=== PATIENT | female | born 1970 | race Caucasian/White ===

== ENCOUNTER 2019-06-26 11:18 | Outpatient (CLI) | payer BC, SELFPAY ==
--- NOTE | ~2019-06-26 | US_ITS ---
EXAMINATION: US venous doppler LE RT EXAM DATE: 06/26/2019 12:08 INDICATION: Right leg swelling. TECHNIQUE: Multiple grayscale, color flow and Doppler images of the right lower extremity deep venous system were obtained and reviewed. There is no prior study for comparison. FINDINGS: The right common femoral, femoral and profunda veins demonstrate normal color flow, respira tory variation, augmentation and compressibility. Compressibility, color flow confirmed within the r ight popliteal, posterior tibial, peroneal, and greater saphenous veins. Small Chaudhary's cyst measurin g 1.9 x 0.8 x 2.2 cm. IMPRESSION: 1. No right lower extremity deep venous thrombosis. 2. Small Chaudhary's cyst. Reviewed, dictated and finalized at location B.
== END 2019-06-26 11:19 | disposition home or self-care (01) ==
PROVIDERS: PCP Family Medicine; Visit Provider Family Medicine
DX: M79.89 Other specified soft tissue disorders (principal); M71.22 Synovial cyst of popliteal space [Baker], left knee
CPT/HCPCS: 93971

== ENCOUNTER 2019-08-15 11:00 | Outpatient (CLI) | payer BC, SELFPAY ==
[2019-08-15 11:53] LABS: Alanine Aminotransferase 13 U/L (4-35); Albumin Level 4.3 g/dL (3.5-5.1); Alkaline Phosphatase 96 U/L (38-126); Aspartate Amino Transferase 20 U/L (14-36); Bilirubin,Total 0.5 mg/dL (0.2-1.3); Blood Urea Nitrogen 16 mg/dL (7-17); Carbon Dioxide 26 mmol/L (22-30); Chloride 107 mmol/L (98-107); Cholesterol 137 mg/dL (0-200); Estimated Glomerular Filt Rate 59; Glucose 103 mg/dL (65-105); HDL Direct 32 mg/dL; Potassium 4.3 mmol/L (3.4-5.0); Sodium 139 mmol/L (137-145); Triglycerides 111 mg/dL (<150)
[2019-08-15 12:04] LABS: LDL Cholesterol Direct 80 mg/dL
== END 2019-08-15 11:01 | disposition home or self-care (01) ==
PROVIDERS: PCP Family Medicine; Visit Provider Family Medicine
DX: E78.2 Mixed hyperlipidemia (principal); I10 Essential (primary) hypertension
CPT/HCPCS: 36415; 80053; 80061

== ENCOUNTER 2020-03-20 15:04 | Outpatient (CLI) | payer BC, SELFPAY ==
[2020-03-20 16:16] LABS: Basophils Absolute Auto 0.1 K/mm3 (0.0-0.1); Basophils Percent Auto 0.5 % (0.2-1.2); Eosinophils Absolute Auto 0.2 K/mm3 (0-0.3); Eosinophils Percent Auto 0.9 % (0-4.4); Hematocrit 37.8 % (37.0-47.0); Hemoglobin 11.8 g/dL (12.0-15.0); Immature Granulocyte Absolute 0.09 K/mm3 (0.00-0.031); Immature Granulocyte Percent A 0.5 % (0-0.5); Lymphocytes Absolute Auto 3.45 K/mm3 (0.9-3.2); Lymphocytes Percent Auto 19.9 % (18.3-44.2); Mean Corpuscular HGB Conc 31.2 g/dl (32-36); Mean Corpuscular Hemoglobin 26.2 pg (26-34); Mean Corpuscular Volume 83.8 fl (80-100); Monocytes Absolute Auto 0.9 K/mm3 (0.1-0.6); Monocytes Percent Auto 4.9 % (2.6-8.5); Neutrophils Absolute Auto 12.7 K/mm3 (1.3-6.7); Neutrophils Percent Auto 73.3 % (45.5-73.1); Platelet Count Result 424 k/mm3 (150-375); Red Blood Count 4.51 M/mm3 (4.2-5.4); Red Cell Distribution Width 13.9 % (11.5-14.5); White Blood Count 17.3 K/mm3 (4.5-10.0)
[2020-03-20 16:32] LABS: Alanine Aminotransferase 14 U/L (4-35); Albumin Level 4.3 g/dL (3.5-5.1); Alkaline Phosphatase 97 U/L (38-126); Anion Gap 9 mmol/L (8-16); Aspartate Amino Transferase 19 U/L (14-36); Bilirubin,Total 0.4 mg/dL (0.2-1.3); Blood Urea Nitrogen 14 mg/dL (7-17); Calcium 9.1 mg/dL (8.4-10.2); Carbon Dioxide 28 mmol/L (22-30); Chloride 104 mmol/L (98-107); Estimated Glomerular Filt Rate 53; Glucose 95 mg/dL (65-105); Potassium 3.9 mmol/L (3.4-5.0); Sodium 141 mmol/L (137-145)
[2020-03-20 18:21] LABS: Free T4 Free Thyroxine Reflex 0.89 ng/dL (0.78-2.19)
[2020-03-20 19:30] LABS: Total Triiodothyronine (T3) 1.65 NG/ML (0.97-1.69)
== END 2020-03-20 15:05 | disposition home or self-care (01) ==
LOC: ANHLAB 15:06
PROVIDERS: PCP Family Medicine; Visit Provider Physician Assistant
DX: I11.9 Hypertensive heart disease without heart failure (principal); G47.19 Other hypersomnia; R63.5 Abnormal weight gain
CPT/HCPCS: 36415; 80053; 84439; 84443; 84480; 85025

== ENCOUNTER 2021-06-05 08:21 | Outpatient (CLI) | payer BC, SELFPAY ==
[2021-06-05 08:50] LABS: Basophils Absolute Auto 0.1 K/mm3 (0.0-0.1); Basophils Percent Auto 0.6 % (0.2-1.2); Eosinophils Absolute Auto 0.2 K/mm3 (0-0.3); Eosinophils Percent Auto 1.4 % (0-4.4); Hematocrit 39.4 % (37.0-47.0); Hemoglobin 12.2 g/dL (12.0-15.0); Immature Granulocyte Absolute 0.04 K/mm3 (0.00-0.031); Immature Granulocyte Percent A 0.3 % (0-0.5); Lymphocytes Absolute Auto 2.61 K/mm3 (0.9-3.2); Lymphocytes Percent Auto 22.6 % (18.3-44.2); Mean Corpuscular Hemoglobin 26.4 pg (26-34); Mean Corpuscular Volume 85.3 fl (80-100); Monocytes Absolute Auto 0.6 K/mm3 (0.1-0.6); Neutrophils Absolute Auto 8.1 K/mm3 (1.3-6.7); Neutrophils Percent Auto 70.1 % (45.5-73.1); Platelet Count Result 368 k/mm3 (150-375); Red Blood Count 4.62 M/mm3 (4.2-5.4); White Blood Count 11.6 K/mm3 (4.5-10.0)
[2021-06-05 09:01] LABS: Alanine Aminotransferase 15 U/L (4-35); Albumin Level 4.3 g/dL (3.5-5.1); Alkaline Phosphatase 97 U/L (38-126); Anion Gap 7 mmol/L (8-16); Aspartate Amino Transferase 22 U/L (14-36); Bilirubin,Total 0.4 mg/dL (0.2-1.3); Blood Urea Nitrogen 14 mg/dL (7-17); Carbon Dioxide 26 mmol/L (22-30); Chloride 109 mmol/L (98-107); Cholesterol 114 mg/dL (0-200); Estimated Glomerular Filt Rate > 60; Glucose 112 mg/dL (65-110); HDL Direct 30 mg/dL; Potassium 3.7 mmol/L (3.4-5.0); Sodium 142 mmol/L (137-145); Triglycerides 129 mg/dL (<150)
[2021-06-05 09:14] LABS: LDL Cholesterol Direct 62 mg/dL
[2021-06-05 09:34] LABS: Total Triiodothyronine (T3) 1.42 NG/ML (0.97-1.69)
[2021-06-05 09:50] LABS: Free T4 Free Thyroxine 0.97 ng/mL (0.78-2.19)
== END 2021-06-05 08:22 | disposition home or self-care (01) ==
LOC: ANHLAB 08:24
PROVIDERS: PCP Family Medicine; Visit Provider Family Medicine
DX: E53.8 Deficiency of other specified B group vitamins (principal); E78.2 Mixed hyperlipidemia; I10 Essential (primary) hypertension; E03.9 Hypothyroidism, unspecified
CPT/HCPCS: 36415; 80053; 80061; 82607; 84439; 84443; 84480; 85025

== ENCOUNTER 2022-02-09 08:07 | Outpatient (CLI) | payer BC, SELFPAY ==
[2022-02-09 08:27] LABS: Basophils Absolute Auto 0.1 K/mm3 (0.0-0.1); Basophils Percent Auto 0.5 % (0.2-1.2); Eosinophils Absolute Auto 0.2 K/mm3 (0-0.3); Eosinophils Percent Auto 2.1 % (0-4.4); Hematocrit 38.4 % (37.0-47.0); Hemoglobin 12.2 g/dL (12.0-15.0); Immature Granulocyte Absolute 0.04 K/mm3 (0.00-0.031); Immature Granulocyte Percent A 0.4 % (0-0.5); Lymphocytes Absolute Auto 2.65 K/mm3 (0.9-3.2); Mean Corpuscular HGB Conc 31.8 g/dl (32-36); Mean Corpuscular Hemoglobin 27.2 pg (26-34); Mean Corpuscular Volume 85.7 fl (80-100); Mean Platelet Volume 10.3 fl (7.4-10.4); Monocytes Absolute Auto 0.6 K/mm3 (0.1-0.6); Monocytes Percent Auto 5.7 % (2.6-8.5); Neutrophils Absolute Auto 7.5 K/mm3 (1.3-6.7); Neutrophils Percent Auto 67.3 % (45.5-73.1); Platelet Count Result 349 k/mm3 (150-375); Red Blood Count 4.48 M/mm3 (4.2-5.4); Red Cell Distribution Width 14.1 % (11.5-14.5); White Blood Count 11.1 K/mm3 (4.5-10.0)
[2022-02-09 08:56] LABS: Alanine Aminotransferase 16 U/L (6-35); Albumin Level 4.3 g/dL (3.5-5.1); Alkaline Phosphatase 96 U/L (38-126); Anion Gap 9 mmol/L (8-16); Aspartate Amino Transferase 19 U/L (14-36); Bilirubin,Total 0.4 mg/dL (0.2-1.3); Blood Urea Nitrogen 15 mg/dL (7-17); Calcium 9.1 mg/dL (8.4-10.2); Carbon Dioxide 25 mmol/L (22-30); Chloride 109 mmol/L (98-107); Estimated Glomerular Filt Rate 59; Glucose 115 mg/dL (65-110); Potassium 3.7 mmol/L (3.4-5.0); Sodium 143 mmol/L (137-145)
[2022-02-09 09:14] LABS: Erythrocyte Sedimentation Rate 22 mm/hr (0-20)
== END 2022-02-09 08:08 | disposition home or self-care (01) ==
LOC: ANHLAB 08:09
PROVIDERS: PCP Family Medicine; Visit Provider Family Medicine
DX: M62.89 Other specified disorders of muscle (principal); D72.829 Elevated white blood cell count, unspecified; E53.8 Deficiency of other specified B group vitamins; R26.89 Other abnormalities of gait and mobility; I12.9 Hypertensive chronic kidney disease with stage 1 through stage 4 chronic kidney disease, or unspecified chronic kidney disease; E07.9 Disorder of thyroid, unspecified; N18.9 Chronic kidney disease, unspecified
CPT/HCPCS: 36415; 80053; 82607; 84443; 85025; 85652

== ENCOUNTER 2022-02-16 07:48 | Outpatient (CLI) | payer BC, SELFPAY ==
--- NOTE | ~2022-02-16 | DEXA_ITS ---
Bone Density Report Name: LETITIA MARK Age: 51 Sex: Female Ethnicity: White Date of : 1970 Indication: postmenopausal; height loss; hysterectomy; Referring Provider: KYLAH RODRIGUEZ Study: Bone densitometry was performed. Exam Date: February 16, 2022 Accession number: [id number] Bone Density: Region BMD T-score Z-score Classification AP Spine(L1-L4) 1.036 -0.1 0.6 Normal Femoral Neck (Left) 0.679 -1.5 -0.8 Osteopenia Total Hip (Left) 0.900 -0.3 0.1 Normal Femoral Neck (Right) 0.659 -1.7 -1.0 Osteopenia Total Hip (Right) 0.843 -0.8 -0.4 Normal Total Hip Mean 0.871 -0.6 -0.2 Normal World Health Organization criteria for BMD impression classify patients as: Normal (T-score at or above -1.0), Osteopenia (T-score between -1.0 and -2.5), or Osteoporosis (T-score at or below -2.5). 10-year Fracture Risk(1): Major Osteoporotic Fracture 4.3% Hip Fracture 0.4% Reported Risk Factors: [place] (), Neck BMD=0.659, BMI=38.4 (1) FRAX(R) Version 3.08. Fracture probability calculated for an untreated patient. Fracture probability may be lower if the patient has received treatment. Clinical Information Provided by Patient: Has the following medical conditions: Hysterectomy Patient maximum height was 63 Menopause Age: 37 Drinks caffeinated beverages Onset of menses at age 14 Number of children 0 Impression: The patient has low bone mass, based on the Right Femoral Neck T-score. The patient has an estimated ten-year risk of hip fracture of 0.4% and an estimated ten-year risk of major fracture of 4.3%, based on the WHO FRAX algorithm. Discussion: BONE DENSITY IS LOW AT ONE OR MORE SKELETAL SITES. This patient's lowest T-score is low at one or more skeletal sites. It meets the World Health Organization's (WHO) criteria for ?low bone mass? (T-score between -1.0 and -2.5). The patient's 10-year risk of fracture as calculated by FRAX is less than the threshold where pharmacological therapy is recommended by the National Osteoporosis Foundation (NOF). However, all treatment decisions require clinical judgment and consideration of individual patient factors, including patient preferences, comorbidities, previous drug use, risk factors not captured in the FRAX model (e.g., frailty, falls, vitamin D deficiency, increased bone turnover, interval significant decline in bone density) and possible under or overestimation of fracture risk by FRAX. The patient should follow a healthful lifestyle (good nutrition with adequate calcium and vitamin D, and appropriate weight-bearing exercise). Follow-Up: Consider repeating this study in 2 to 3 years to reassess this patient's status, or sooner if there is some new clinical indication. Reported by: [facility] on 02/16/2022 8:07:00 AM.
== END 2022-02-16 07:49 | disposition home or self-care (01) ==
PROVIDERS: PCP Family Medicine; Visit Provider Family Medicine
DX: M81.0 Age-related osteoporosis without current pathological fracture (principal); M62.89 Other specified disorders of muscle; M85.852 Other specified disorders of bone density and structure, left thigh; M85.851 Other specified disorders of bone density and structure, right thigh
CPT/HCPCS: 77080

== ENCOUNTER 2022-05-22 08:10 | Outpatient (CLI) | payer BC, SELFPAY ==
[2022-05-22 08:40] LABS: Basophils Absolute Auto 0.1 K/mm3 (0.0-0.1); Basophils Percent Auto 0.5 % (0.2-1.2); Eosinophils Absolute Auto 0.2 K/mm3 (0-0.3); Eosinophils Percent Auto 1.8 % (0-4.4); Hematocrit 37.8 % (37.0-47.0); Hemoglobin 12.3 g/dL (12.0-15.0); Immature Granulocyte Absolute 0.05 K/mm3 (0.00-0.031); Immature Granulocyte Percent A 0.4 % (0-0.5); Lymphocytes Absolute Auto 2.07 K/mm3 (0.9-3.2); Lymphocytes Percent Auto 18.3 % (18.3-44.2); Mean Corpuscular HGB Conc 32.5 g/dl (32-36); Mean Corpuscular Hemoglobin 27.5 pg (26-34); Mean Corpuscular Volume 84.4 fl (80-100); Mean Platelet Volume 10.1 fl (7.4-10.4); Monocytes Absolute Auto 0.5 K/mm3 (0.1-0.6); Monocytes Percent Auto 4.8 % (2.6-8.5); Neutrophils Absolute Auto 8.4 K/mm3 (1.3-6.7); Neutrophils Percent Auto 74.2 % (45.5-73.1); Platelet Count Result 328 k/mm3 (150-375); Red Blood Count 4.48 M/mm3 (4.2-5.4); Red Cell Distribution Width 13.7 % (11.5-14.5); White Blood Count 11.3 K/mm3 (4.5-10.0)
[2022-05-22 09:36] LABS: Free T4 Free Thyroxine 0.96 ng/mL (0.78-2.19)
[2022-05-22 09:59] LABS: Alanine Aminotransferase 19 U/L (6-35); Albumin Level 4.5 g/dL (3.5-5.1); Alkaline Phosphatase 95 U/L (38-126); Anion Gap 10 mmol/L (8-16); Aspartate Amino Transferase 22 U/L (14-36); Bilirubin,Total 0.4 mg/dL (0.2-1.3); Blood Urea Nitrogen 18 mg/dL (7-17); Carbon Dioxide 24 mmol/L (22-30); Chloride 109 mmol/L (98-107); Estimated Glomerular Filt Rate > 60; Glucose 113 mg/dL (65-110); Potassium 3.5 mmol/L (3.4-5.0); Sodium 143 mmol/L (137-145)
[2022-05-22 12:18] LABS: Hemoglobin A1C 5.6 % (<5.7)
[2022-05-22 12:37] LABS: Total Triiodothyronine (T3) 1.74 NG/ML (0.97-1.69)
== END 2022-05-22 08:11 | disposition home or self-care (01) ==
LOC: ANHLAB 08:11
PROVIDERS: PCP Family Medicine; Visit Provider Physician Assistant
DX: E53.8 Deficiency of other specified B group vitamins (principal); R73.01 Impaired fasting glucose; I12.9 Hypertensive chronic kidney disease with stage 1 through stage 4 chronic kidney disease, or unspecified chronic kidney disease; E07.9 Disorder of thyroid, unspecified; D72.829 Elevated white blood cell count, unspecified; E03.9 Hypothyroidism, unspecified; N18.9 Chronic kidney disease, unspecified
CPT/HCPCS: 36415; 80053; 82607; 83036; 84439; 84443; 84480; 85025

== ENCOUNTER 2022-06-25 01:11 | Day surgery (SDC) | payer BC, SELFPAY ==
[2022-06-15 09:54] VITALS: BMI 38.5
[2022-06-25 07:10] VITALS: BP 140/66; PULSE 82; RESP 16; TEMP 36.2; O2SAT 100; BMI 35.2
[2022-06-25] MEDS: LACTATED RINGERS 1,000 ML 150 ML IV CONT (07:28)
--- NOTE | 2022-06-25 07:54 | WPDANESEPPF ---
Anes - Initial Pre Proc Eval Procedure: Operation Date: 06/25/22 08:30 Proposed Procedures p Screening Colonoscopy - Anam Carolina MD Date/Time: 06/25/22 07:54 Surgeon: Anam Carolina MD Pre Op Diagnosis: neoplasm screening Patient Data Age: 52 Gender: F Height: 1.57 m Weight: 87.3 kg Last Vital Signs Temp 97.1 F L 06/25/22 07:10 Pulse 82 06/25/22 07:10 Resp 16 06/25/22 07:10 BP 140/66 06/25/22 07:10 Pulse Ox 100 06/25/22 07:10 O2 Del Method Room Air 06/25/22 07:10 Allergies Allergy/AdvReac Type Severity Reaction Status Date / Time nebivolol Allergy Unknown unknown Verified 06/25/22 07:16 Penicillins Allergy Unknown Skin Verified 06/25/22 07:16 irritation Home Medications Medication Instructions Recorded Confirmed Type atenolol 100 mg tablet 100 mg PO DAILY #90 tabs 08/08/21 06/25/22 Rx atorvastatin 20 mg tablet 20 mg PO DAILY #90 tabs 08/08/21 06/25/22 Rx mecobalamin (vitamin B12) 1,000 1,000 mcg PO DAILY #90 ea 05/22/22 06/25/22 Rx mcg lozenges sodium,potassium,mag sulfates 17.5 See Rx Instructions PO .COMPLEX 06/01/22 06/25/22 Rx gram-3.13 gram-1.6 gram oral soln #354 mL (Suprep Bowel Prep Kit) aspirin 81 mg tablet,delayed 81 mg PO DAILY 06/15/22 06/25/22 History release levothyroxine 50 mcg tablet 50 mcg PO DAILY 06/15/22 06/25/22 History meloxicam 7.5 mg tablet 7.5 mg PO DAILY PRN Pain 06/15/22 06/25/22 History quetiapine 50 mg tablet 50 mg PO HS 06/15/22 06/25/22 History valsartan 80 mg tablet 80 mg PO DAILY 06/15/22 06/25/22 History amlodipine 10 mg tablet 10 mg PO DAILY #90 tabs 06/21/22 06/25/22 Rx furosemide 40 mg tablet 40 mg PO QAM #90 tabs 06/21/22 06/25/22 Rx Patient hx anesthesia problems: none Family hx anesthesia problems: none Results Review: All pre-operative results and documents have been reviewed as part of the pre-operative evaluation. [facility] Past Medical History Medical History (Updated 05/22/22 @ 08:02 by Dinora Colvin MD) Abnormal thyroid blood test Bilateral lower extremity edema Encounter for IUD insertion 06/09/10 Mirena insertion Encounter for IUD removal 02/04/11 Mirena removal Essential (primary) hypertension ANGÉLICA (generalized anxiety disorder) Hemiplegia of nondominant side due to acute cerebrovascular accident (CVA) Hemiplegia, unspecified affecting unspecified side History of endometrial biopsy (08/29/09) proliferative endometrium Labyrinthitis of left ear Major depressive disorder, recurrent, moderate Malignant essential hypertension Malignant HTN with heart disease, 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, w/o chronic kidney disease Mixed hyperlipidemia Mixed hyperlipidemia Screening mammogram, encounter for Stroke (~09/19/18) Vomiting Surgical History Surgical History History of dilation and curettage (~2008) hscope d&c--abnormal bleeding--proliferative endometrium History of robot-assisted laparoscopic hysterectomy (02/04/11) RA TLH/removal of Mirena IUD--abnormal bleeding--inactive endometrial pattern, nabothian cysts Family History Family History Father Hypertension Diabetes mellitus Mother Hypertension, Onset Age: 69 Cerebrovascular accident Family history of cardiovascular disease, Onset Age: 69 Family history of arthritis, Onset Age: 69 Diabetes mellitus Heart disease Malignant neoplasm of uterus Grandparent Malignant neoplasm of lung maternal grandfather Other Family history of seizure disorder Social History Social History Social History: Smoking status: Never smoker Second hand tobacco smoke exposure: Yes Alcohol intake: never Substance use: never Substance use type: does not use Living arrangements: with roommate(s) Additional living arrangements comments: pt has a roomma
--- NOTE | 2022-06-25 08:19 | PM.HPGS ---
History of Present Illness History of Present Illness Consent: Risks, benefits, and alternatives have been discussed and questions answered. Patient agrees to proceed with procedure. Chief complaint: neoplasm screening Narrative: Debbi Moss is a 52 year old female Presents for screening colonoscopy. Patient's current weight appetite and bowel movements are normal. Patient denies abdominal pain. She has had no bleeding. Family history is noncontributory. Review of Systems Review of Systems: Review of systems noncontributory. [facility] Past Medical History Medical History (Updated 05/22/22 @ 08:02 by Dinora Colvin MD) Abnormal thyroid blood test Bilateral lower extremity edema Encounter for IUD insertion 06/09/10 Mirena insertion Encounter for IUD removal 02/04/11 Mirena removal Essential (primary) hypertension ANGÉLICA (generalized anxiety disorder) Hemiplegia of nondominant side due to acute cerebrovascular accident (CVA) Hemiplegia, unspecified affecting unspecified side History of endometrial biopsy (08/29/09) proliferative endometrium Labyrinthitis of left ear Major depressive disorder, recurrent, moderate Malignant essential hypertension Malignant HTN with heart disease, w/o CHF, w/o chronic kidney disease Mixed hyperlipidemia Mixed hyperlipidemia Screening mammogram, encounter for Stroke (~09/19/18) Vomiting Surgical History Surgical History History of dilation and curettage (~2008) hscope d&c--abnormal bleeding--proliferative endometrium History of robot-assisted laparoscopic hysterectomy (02/04/11) RA TLH/removal of Mirena IUD--abnormal bleeding--inactive endometrial pattern, nabothian cysts Family History Family History Father Hypertension Diabetes mellitus Mother Hypertension, Onset Age: 69 Cerebrovascular accident Family history of cardiovascular disease, Onset Age: 69 Family history of arthritis, Onset Age: 69 Diabetes mellitus Heart disease Malignant neoplasm of uterus Grandparent Malignant neoplasm of lung maternal grandfather Other Family history of seizure disorder Social History Social History Social History: Smoking status: Never smoker Second hand tobacco smoke exposure: Yes Alcohol intake: never Substance use: never Substance use type: does not use Living arrangements: with roommate(s) Additional living arrangements comments: pt has a roommate and boyfriend that lives with her. 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 Gender identity (if verbalized by the patient): Female Sexual Orientation (if Verbalized by the Patient): Straight or Heterosexual Spiritual care concerns: No Meds Home Medications and Allergies Home Medications Medication Instructions Recorded Confirmed Type atenolol 100 mg tablet 100 mg PO DAILY #90 tabs 08/08/21 06/25/22 Rx atorvastatin 20 mg tablet 20 mg PO DAILY #90 tabs 08/08/21 06/25/22 Rx mecobalamin (vitamin B12) 1,000 1,000 mcg PO DAILY #90 ea 05/22/22 06/25/22 Rx mcg lozenges sodium,potassium,mag sulfates 17.5 See Rx Instructions PO .COMPLEX 06/01/22 06/25/22 Rx gram-3.13 gram-1.6 gram oral soln #354 mL (Suprep Bowel Prep Kit) aspirin 81 mg tablet,delayed 81 mg PO DAILY 06/15/22 06/25/22 History release levothyroxine 50 mcg tablet 50 mcg PO DAILY 06/15/22 06/25/22 History meloxicam 7.5 mg tablet 7.5 mg PO DAILY PRN Pain 06/15/22 06/25/22 History quetiapine 50 mg tablet 50 mg PO HS 06/15/22 06/25/22 History valsartan 80 mg tablet 80 mg PO DAILY 06/15/22 06/25/22 History amlodipine 10 mg tablet 10 mg PO DAILY #90 tabs 06/21/22 06/25/22 Rx furosemide 40 mg tablet 40 mg PO QAM #90 tabs 06/21/22 06/25/22 Rx Allergies Allergy/AdvReac Type Zulema
[2022-06-25 08:56] VITALS: BP 87/52; PULSE 72; RESP 20; O2SAT 97
[2022-06-25 09:06] VITALS: BP 110/59; PULSE 70; RESP 26; O2SAT 98
[2022-06-25 09:16] VITALS: BP 116/68; PULSE 66; RESP 20; O2SAT 99
== END 2022-06-25 09:26 | disposition home or self-care (01) ==
PROVIDERS: PCP Family Medicine; Visit Provider Internal Medicine Gastroenterology
PROC: 0DJD8ZZ Inspection of Lower Intestinal Tract, Via Natural or Artificial Opening Endoscopic (ICD-10-PCS; CPT 45378; principal; 2022-06-25 08:30)
DX: Z12.11 Encounter for screening for malignant neoplasm of colon (principal); K64.8 Other hemorrhoids; D12.5 Benign neoplasm of sigmoid colon; F41.1 Generalized anxiety disorder; I69.359 Hemiplegia and hemiparesis following cerebral infarction affecting unspecified side; F33.1 Major depressive disorder, recurrent, moderate; I11.9 Hypertensive heart disease without heart failure; E78.2 Mixed hyperlipidemia; Z79.82 Long term (current) use of aspirin; E66.9 Obesity, unspecified; Z68.35 Body mass index [BMI] 35.0-35.9, adult
CPT/HCPCS: 45385; 88305; J2704; J7120

== ENCOUNTER 2023-01-21 09:01 | Outpatient (CLI) | payer BC, SELFPAY ==
[2023-01-21 09:42] LABS: Basophils Absolute Auto 0.1 K/mm3 (0.0-0.1); Basophils Percent Auto 0.5 % (0.2-1.2); Eosinophils Absolute Auto 0.2 K/mm3 (0-0.3); Eosinophils Percent Auto 2.2 % (0-4.4); Hematocrit 38.2 % (37.0-47.0); Hemoglobin 11.9 g/dL (12.0-15.0); Immature Granulocyte Absolute 0.04 K/mm3 (0.00-0.031); Immature Granulocyte Percent A 0.4 % (0-0.5); Lymphocytes Percent Auto 24.3 % (18.3-44.2); Mean Corpuscular HGB Conc 31.2 g/dl (32-36); Mean Corpuscular Hemoglobin 26.6 pg (26-34); Mean Corpuscular Volume 85.3 fl (80-100); Mean Platelet Volume 10.6 fl (7.4-10.4); Monocytes Absolute Auto 0.6 K/mm3 (0.1-0.6); Monocytes Percent Auto 5.2 % (2.6-8.5); Neutrophils Absolute Auto 7.2 K/mm3 (1.3-6.7); Neutrophils Percent Auto 67.4 % (45.5-73.1); Platelet Count Result 327 k/mm3 (150-375); Red Blood Count 4.48 M/mm3 (4.2-5.4); White Blood Count 10.7 K/mm3 (4.5-10.0)
[2023-01-21 13:08] LABS: Hemoglobin A1C 5.6 % (<5.7)
[2023-01-21 17:53] LABS: Alanine Aminotransferase 21 U/L (6-35); Albumin Level 4.1 g/dL (3.5-5.1); Alkaline Phosphatase 91 U/L (38-126); Anion Gap 7 mmol/L (8-16); Aspartate Amino Transferase 24 U/L (14-36); Bilirubin,Total 0.6 mg/dL (0.2-1.3); Blood Urea Nitrogen 16 mg/dL (7-17); Calcium 9.2 mg/dL (8.4-10.2); Carbon Dioxide 26 mmol/L (22-30); Chloride 108 mmol/L (98-107); Cholesterol 133 mg/dL (0-200); Estimated Glomerular Filt Rate > 60; Glucose 108 mg/dL (65-110); HDL Direct 36 mg/dL; Potassium 3.7 mmol/L (3.4-5.0); Sodium 141 mmol/L (137-145); Triglycerides 114 mg/dL (<150)
[2023-01-21 18:06] LABS: LDL Cholesterol Direct 74 mg/dL
[2023-01-21 18:38] LABS: Total Triiodothyronine (T3) 1.38 NG/ML (0.97-1.69)
[2023-01-21 22:22] LABS: Free T4 Free Thyroxine 0.87 ng/mL (0.78-2.19)
[2023-01-26 00:03] LABS: Vitamin D 1,25 (OH)2 Total 44 pg/mL (18-72); Vitamin D2 1,25 (OH)2 <8 pg/mL; Vitamin D3 1,25 (OH)2 44 pg/mL
== END 2023-01-21 09:02 | disposition home or self-care (01) ==
LOC: ANHLAB 09:03
PROVIDERS: PCP Family Medicine; Visit Provider Family Medicine
DX: D72.829 Elevated white blood cell count, unspecified (principal); E03.9 Hypothyroidism, unspecified; E07.9 Disorder of thyroid, unspecified; E53.8 Deficiency of other specified B group vitamins; E78.2 Mixed hyperlipidemia; F33.1 Major depressive disorder, recurrent, moderate; R79.89 Other specified abnormal findings of blood chemistry; I10 Essential (primary) hypertension; E11.9 Type 2 diabetes mellitus without complications
CPT/HCPCS: 36415; 80053; 80061; 82607; 82652; 83036; 84439; 84443; 84480; 85025

== ENCOUNTER 2023-02-22 08:43 | Outpatient (CLI) | payer BC, SELFPAY ==
[2023-02-22 09:44] LABS: Basophils Percent Auto 0.4 % (0.2-1.2); Eosinophils Absolute Auto 0.2 K/mm3 (0-0.3); Hematocrit 37.4 % (37.0-47.0); Hemoglobin 11.8 g/dL (12.0-15.0); Immature Granulocyte Absolute 0.04 K/mm3 (0.00-0.031); Immature Granulocyte Percent A 0.4 % (0-0.5); Lymphocytes Absolute Auto 2.07 K/mm3 (0.9-3.2); Lymphocytes Percent Auto 22.3 % (18.3-44.2); Mean Corpuscular HGB Conc 31.6 g/dl (32-36); Mean Corpuscular Hemoglobin 26.5 pg (26-34); Mean Platelet Volume 10.4 fl (7.4-10.4); Monocytes Absolute Auto 0.5 K/mm3 (0.1-0.6); Monocytes Percent Auto 5.4 % (2.6-8.5); Neutrophils Absolute Auto 6.5 K/mm3 (1.3-6.7); Neutrophils Percent Auto 69.5 % (45.5-73.1); Platelet Count Result 298 k/mm3 (150-375); Red Blood Count 4.45 M/mm3 (4.2-5.4); White Blood Count 9.3 K/mm3 (4.5-10.0)
[2023-02-22 09:53] LABS: Alanine Aminotransferase 19 U/L (6-35); Albumin Level 4.2 g/dL (3.5-5.1); Alkaline Phosphatase 94 U/L (38-126); Anion Gap 9 mmol/L (8-16); Aspartate Amino Transferase 25 U/L (14-36); Bilirubin,Total 0.6 mg/dL (0.2-1.3); Blood Urea Nitrogen 13 mg/dL (7-17); Calcium 9.3 mg/dL (8.4-10.2); Carbon Dioxide 26 mmol/L (22-30); Chloride 107 mmol/L (98-107); Estimated Glomerular Filt Rate > 60; Glucose 113 mg/dL (65-110); Potassium 3.8 mmol/L (3.4-5.0); Sodium 142 mmol/L (137-145)
[2023-02-22 10:02] LABS: Transferrin 255 mg/dL (206-381)
[2023-02-22 10:07] LABS: Iron 58 ug/dL (37-170)
[2023-02-22 10:16] LABS: Percent Iron Saturation 18 % (20-50)
[2023-02-22 10:35] LABS: Erythrocyte Sedimentation Rate 21 mm/hr (0-20)
[2023-02-25 00:30] LABS: Methylmalonic Acid 74 nmol/L (87-318)
[2023-02-26 10:01] LABS: BCR/abl Prior Result Not Given
[2023-02-26 10:45] LABS: BCR/abl P190 Not Detected; BCR/abl P210 Not Detected
[2023-02-26 10:46] LABS: BCR/abl P190 Chg YES; BCR/abl P210 Chg YES
== END 2023-02-22 08:44 | disposition home or self-care (01) ==
PROVIDERS: PCP Family Medicine; Visit Provider Nurse Practitioner Family
DX: D72.829 Elevated white blood cell count, unspecified (principal); D64.9 Anemia, unspecified
CPT/HCPCS: 36415; 80053; 81206; 81207; 82728; 83540; 83550; 83921; 84466; 85025; 85652; 86038; 88184; 99212; G0463

== ENCOUNTER 2023-06-17 08:30 | Outpatient (RCR) | payer BC, SELFPAY ==
--- NOTE | 2023-05-20 08:57 | PTOPEVAL1 ---
Assessment and note entered by Oumar Sow, PT Evaluation Information Assessment Status Evaluation Diagnosis Right knee pain, Right knee instability Onset 04/22/23 Subjective Information Reports that she has had increasing knee pain for the last few weeks. Has difficultly walking and sanding on her feet for a long time. She is sore after she has been in one position for a long time and tries to walk. She also reports that she has had some glute and thigh pain on her right leg. She broke her leg as a child but has had no known injury since then. 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 Feels that her balance is off as well since her stoke in 2019. Her stroke affected her left side. Reports that she did have a fall about 3 weeks ago . Reported Pain Level Pain Score 5: Self Report Assessment PT Clinical Summary Patient presents with minor loss in R knee strength and ROM. Majority of LE testing resulted in lumbar spine pain. I believe patient has combination of R knee arthritis and lumbar radiculopathy and will benefit from program containing core strength, hip ROM, and leg strengthening to address both issues. Plan of Care Interventions Electrical Stimulation,Gait Training,Hot Pack/Cold Pack,Manual Therapy,Neuro Re-education, Therapeutic Activities,Therapeutic Exercise PT Services Indicated Yes Treatment Frequency and 2x/week for 8 visits Duration These treatments will address the objective and functional deficits as defined above. The patient will be advanced safely and appropriately in order for the patient to progress towards his/her prior level of function. Additional exercises will be introduced and as well as a comprehensive home exercise program upon discharge, if needed, ?to ensure carryover of functional gains achieved in the clinic. This treatment plan has been reviewed and agreement upon by the patient.
--- NOTE | 2023-05-20 08:58 | OPREHPOC ---
Outpatient Therapy Plan of Care This is a Multidisciplinary Plan of Care that may contain components documented by all disciplines (PT, OT, and ST.) PT Problem 1 PT Problem #1 Knowledge Deficit PT Goal 1 Goal Independenc with HEP PT Problem 2 PT Problem #2 Pain PT Goal 1 Goal Patient will report no increased pain with sit to stand after 20 minutes of sitting Target Visit 8 PT Problem 3 PT Problem #3 Impaired Range of Motion PT Goal 1 Goal Patient will achieve terminal R LE extension to improve gait cycle PT Problem 4 PT Problem #4 Impaired Strength PT Goal 1 Goal Improve zuleyka hip flexion strength to 4+/5 to improve foot clearance with ambulation Target Visit 8 PT Goal 2 Goal Improve zuleyka hip abduction strength to 4+/5 to improve lateral core and hip stability and improve knee stability with ADLs Target Visit 8
--- NOTE | 2023-06-17 09:20 | PTOPDC ---
Assessment and note entered by Oumar Sow, PT Evaluation Information Assessment Status Discharge Diagnosis Right knee pain, Right knee instability Onset 04/22/23 Subjective Information Patient reports that overall she feels she is doing better than when she started, but still is at times limited by pain. Feels comfortable with her exercise routine and would like to continue therapy as part of her HEP to continue to build up gait cycle and hip strength. Reported Pain Level Pain Score 4: Self Report Assessment PT Clinical Summary Patient has made significant progress at this time with knee ROM and gross LE strength. Overall we have seen significant progress and shows potential to continue progress. Patient elected to continue therapy as part of HEP to continue to address LE strength deficits. No concerns at his time for discharge. Plan of Care PT Services Indicated D/C to HEP
--- NOTE | 2023-06-17 09:20 | OPREHPOC ---
Outpatient Therapy Plan of Care This is a Multidisciplinary Plan of Care that may contain components documented by all disciplines (PT, OT, and ST.) PT Problem 1 PT Problem #1 Knowledge Deficit PT Goal 1 Goal Independenc with HEP Progress Met PT Problem 2 PT Problem #2 Pain PT Goal 1 Goal Patient will report no increased pain with sit to stand after 20 minutes of sitting Target Visit 8 Progress Met PT Problem 3 PT Problem #3 Impaired Range of Motion PT Goal 1 Goal Patient will achieve terminal R LE extension to improve gait cycle Progress Met PT Problem 4 PT Problem #4 Impaired Strength PT Goal 1 Goal Improve zuleyka hip flexion strength to 4+/5 to improve foot clearance with ambulation Target Visit 8 Progress Partially Met PT Goal 2 Goal Improve zuleyka hip abduction strength to 4+/5 to improve lateral core and hip stability and improve knee stability with ADLs Target Visit 8 Progress Partially Met
== END 2023-06-17 12:46 | disposition home or self-care (01) ==
LOC: ANHPT 08:30
PROVIDERS: PCP Family Medicine; Visit Provider Physician Assistant
DX: M25.561 Pain in right knee (principal); M25.361 Other instability, right knee
CPT/HCPCS: 97014; 97110; 97140; 97161; 97530; G0283

== ENCOUNTER 2023-07-26 09:10 | Outpatient (CLI) | payer BC, SELFPAY ==
[2023-07-26 10:34] LABS: Basophils Absolute Auto 0.1 K/mm3 (0.0-0.1); Basophils Percent Auto 0.5 % (0.2-1.2); Eosinophils Absolute Auto 0.2 K/mm3 (0-0.3); Eosinophils Percent Auto 1.8 % (0-4.4); Hematocrit 39.8 % (37.0-47.0); Immature Granulocyte Absolute 0.07 K/mm3 (0.00-0.031); Immature Granulocyte Percent A 0.7 % (0-0.5); Lymphocytes Absolute Auto 1.87 K/mm3 (0.9-3.2); Lymphocytes Percent Auto 18.6 % (18.3-44.2); Mean Corpuscular HGB Conc 30.2 g/dl (32-36); Mean Corpuscular Hemoglobin 26.1 pg (26-34); Mean Corpuscular Volume 86.5 fl (80-100); Mean Platelet Volume 10.6 fl (7.4-10.4); Monocytes Absolute Auto 0.9 K/mm3 (0.1-0.6); Monocytes Percent Auto 8.9 % (2.6-8.5); Neutrophils Percent Auto 69.5 % (45.5-73.1); Platelet Count Result 340 k/mm3 (150-375); Red Cell Distribution Width 14.2 % (11.5-14.5); White Blood Count 10.1 K/mm3 (4.5-10.0)
[2023-07-26 10:36] LABS: Anion Gap 12 mmol/L (4-12); Blood Urea Nitrogen 11 mg/dL (7-17); Calcium 9.7 mg/dL (8.4-10.2); Carbon Dioxide 22 mmol/L (22-30); Chloride 109 mmol/L (98-107); Estimated Glomerular Filt Rate > 60; Glucose 119 mg/dL (65-110); Potassium 3.8 mmol/L (3.4-5.0); Sodium 143 mmol/L (137-145)
[2023-07-26 10:42] LABS: Transferrin 240 mg/dL (206-381)
[2023-07-26 11:22] LABS: Iron 40 ug/dL (37-170)
[2023-07-26 11:31] LABS: Percent Iron Saturation 12 % (20-50)
[2023-07-26 11:40] LABS: Folic Acid 8.6 ng/mL (2.76->20)
== END 2023-07-26 09:11 | disposition home or self-care (01) ==
PROVIDERS: PCP Family Medicine; Visit Provider Nurse Practitioner Family
DX: D50.8 Other iron deficiency anemias (principal)
CPT/HCPCS: 36415; 80048; 82607; 82728; 82746; 83540; 83550; 84466; 85025

== ENCOUNTER 2023-11-29 07:52 | Outpatient (CLI) | payer BC, SELFPAY ==
[2023-11-29 08:46] LABS: Cholesterol 129 mg/dL (0-200); HDL Direct 36 mg/dL; Triglycerides 127 mg/dL (<150)
[2023-11-29 08:57] LABS: LDL Cholesterol Direct 65 mg/dL
[2023-11-29 10:19] LABS: Free T4 Free Thyroxine 0.85 ng/mL (0.78-2.19)
== END 2023-11-29 07:53 | disposition home or self-care (01) ==
PROVIDERS: PCP Family Medicine; Referring Provider Physician Assistant; Visit Provider Nurse Practitioner Family
DX: R73.9 Hyperglycemia, unspecified (principal); E03.9 Hypothyroidism, unspecified; E07.9 Disorder of thyroid, unspecified; E78.2 Mixed hyperlipidemia; D50.8 Other iron deficiency anemias
CPT/HCPCS: 36415; 80061; 83036; 84439; 84443

== ENCOUNTER 2023-12-17 08:33 | Outpatient (CLI) | payer BC, SELFPAY ==
[2023-12-17 08:52] LABS: Basophils Absolute Auto 0.1 K/mm3 (0.0-0.1); Basophils Percent Auto 0.6 % (0.2-1.2); Eosinophils Absolute Auto 0.3 K/mm3 (0-0.3); Eosinophils Percent Auto 2.6 % (0-4.4); Hemoglobin 12.3 g/dL (12.0-15.0); Immature Granulocyte Absolute 0.05 K/mm3 (0.00-0.031); Immature Granulocyte Percent A 0.5 % (0-0.5); Lymphocytes Absolute Auto 2.28 K/mm3 (0.9-3.2); Lymphocytes Percent Auto 23.1 % (18.3-44.2); Mean Corpuscular HGB Conc 31.5 g/dl (32-36); Mean Corpuscular Hemoglobin 27.3 pg (26-34); Mean Corpuscular Volume 86.5 fl (80-100); Monocytes Absolute Auto 0.5 K/mm3 (0.1-0.6); Monocytes Percent Auto 5.5 % (2.6-8.5); Neutrophils Absolute Auto 6.7 K/mm3 (1.3-6.7); Neutrophils Percent Auto 67.7 % (45.5-73.1); Platelet Count Result 319 k/mm3 (150-375); Red Blood Count 4.51 M/mm3 (4.2-5.4); Red Cell Distribution Width 13.7 % (11.5-14.5); White Blood Count 9.9 K/mm3 (4.5-10.0)
[2023-12-17 15:53] LABS: Anion Gap 11 mmol/L (4-12); Blood Urea Nitrogen 16 mg/dL (7-17); Calcium 9.5 mg/dL (8.4-10.2); Carbon Dioxide 26 mmol/L (22-30); Chloride 107 mmol/L (98-107); Estimated Glomerular Filt Rate > 60; Glucose 119 mg/dL (65-110); Potassium 3.7 mmol/L (3.4-5.0); Sodium 144 mmol/L (137-145)
[2023-12-17 15:56] LABS: Iron 59 ug/dL (37-170)
[2023-12-17 16:05] LABS: Percent Iron Saturation 17 % (20-50)
== END 2023-12-17 08:34 | disposition home or self-care (01) ==
LOC: ANHLAB 08:36
PROVIDERS: Nurse Practitioner Family; PCP Family Medicine; Visit Provider Internal Medicine Hematology & Oncology
DX: D72.829 Elevated white blood cell count, unspecified (principal); D50.8 Other iron deficiency anemias
CPT/HCPCS: 36415; 80048; 82607; 82728; 83540; 83550; 85025

== ENCOUNTER 2024-04-20 09:01 | Outpatient (CLI) | payer BC, SELFPAY ==
--- OUTSIDE RECORDS SUMMARY | 2024-04-20 09:27 | XMS_ITS | Clinical Summary ---
Author Organization [facility] Tracy Thao Address [address] [place] [address] Care Team Providers Care Kitchen Porter Name Role Phone Dinora Colvin MD Primary Care Provider [phone] Allergies Active Allergy Reactions Criticality Noted Date Comments Nebivolol Rash Low 02/18/2023 Penicillins Itching,Rash Low 02/18/2023 Medications atorvastatin 20 mg/5 mL (4 mg/mL) Suspension Active furosemide (LASIX) 40 mg tablet Active levothyroxine 50 mcg/mL Solution Active aspirin (ECOTRIN EC) 81 mg Tablet, Delayed Release (E.C.) Active amLODIPine (NORVASC) 10 mg tablet Take 10 mg by mouth daily. Active atenoloL (TENORMIN) 100 mg tablet Take 100 mg by mouth daily. Active QUEtiapine (SEROquel) 25 mg tablet Take 25 mg by mouth 2 times daily. Active alendronate (FOSAMAX) 70 mg tablet Take 70 mg by mouth every 7 days. empty stomach before other meds,with 8oz of water, stay upright 30 min Active valsartan (DIOVAN) 80 mg tablet Take 80 mg by mouth daily. Active Cholecalciferol , Vitamin D3, 50 mcg (2,000 unit) Capsule Take by mouth. Active Active Problems Problem Noted Date Diagnosed Date Anemia 03/04/2023 Leukocytosis (leucocytosis) 03/04/2023 Encounters Date Type Department Care Team Description 04/12/2024 External Device Data STL ABSTRACTION Provider, Abstract 04/12/2024 External Device Data STL ABSTRACTION Provider, Abstract 04/12/2024 Telephone [facility] Oncology and Hematology - [address] [place] [address] Matti Terrazas MD labs for appointment 04/05/2024 External Device Data STL ABSTRACTION Provider, Abstract from Last 3 Months Family History Medical History Relation Name Comments Diabetes Mother Relation Name Status Comments Brother Alive Father Alive Mother Social History Tobacco Use Types Packs/Day Years Used Date Smoking Tobacco: Never Smokeless Tobacco: Never Tobacco Cessation:Counseling Given: Not Answered Alcohol Use Standard Drinks/Week Comments Never 0 (1 standard drink = 0.6 oz pur e alcohol) Comments Unknown Sex and Gender Information Value Date Recorded Sex Assigned at Not on file Legal Sex Female 10:44 AM ASSISTANT PROFESSOR Gender Identity Not on file Sexual Orientation Not on file Last Filed Vital Signs Vital Sign Reading Time Taken Comments Blood Pressure 144/76 12/23/2023 10:48 AM CDT Pulse 60 12/23/2023 10:48 AM CDT Temperature 36.8 ??C (98.2 ??F) 12/23/2023 10:48 AM C DT Respiratory Rate 16 12/23/2023 10:48 AM CDT Oxygen Saturation 94% 12/23/2023 10:48 AM CDT Inhaled Oxygen Concentration - - Weight 101.2 kg (223 lb) 12/23/2023 10:48 AM CDT Height 160 cm (5' 3 ) 02/18/2023 9:58 AM ASSISTANT PROFESSOR Body Mass Index 39.5 02/18/2023 9:58 AM ASSISTANT PROFESSOR Plan of Treatment Upcoming Encounters Date Type Department Care Team (Late st Contact Info) Description 04/26/2024 11:00 AM ASSISTANT PROFESSOR Office Visit [facility] Oncology and Hematology - [address] [place] [address] Matti Terrazas MD [address] [facility] [address] [place] [address] Health Maintenance Due Date Last Done Comments Pre-Diabetes and Diabetes Screening 1970 DTAP/TDAP/TD VACCINES (1 - Tdap) 1991 HEPATITIS B VACCINES (1 of 3 - 19+ 3-dose series) 03/23 CERVICAL CANCER SCREENING 2002 BREAST CANCER SCREENING 2012 COLORECTAL SCREENING 2017 Colorectal Cancer Screening 2017 FIT-DNA Q 3 years 2017 FIT/FOBT Q 1 year 2017 Flex Sig/CT Colonography Q 5 years 2017 ZOSTER VACCINE (1 of 2) 2022 INFLUENZA VACCINE (#1) 2023 Preventative Visit- Commercial 03/22/2024 Insurance Care Teams Kitchen Porter Relationship Specialty Start Date End Date Dinora Colvin MD [address] [facility] [address] [place] [address] PCP - General Family Practice 02/18/23
--- OUTSIDE RECORDS SUMMARY | 2024-04-20 09:27 | XMS_ITS | Clinical Summary ---
Author Organization [facility] [address] Address [address] [place] [address] Care Team Providers Care Fund Raiser Name Role Phone Dinora Colvin MD Primary Care Provider Allergies Active Allergy Reactions Criticality Noted Date Comments Penicillins Social History Tobacco Use Types Packs/Day Years Used Date Smoking Tobacco: Never Assessed Comments Unknown Sex and Gender Information Value Date Recorded Sex Assigned at Not on file Legal Sex Female 3:49 AM SHUTTLE INSPECTOR Gender Identity Not on file Sexual Orientation Not on file Obstetrics History Plan of Treatment Not on file Insurance [facility] ACCESS Care Teams Fund Raiser Relationship Specialty Start Date End Date Dinora Colvin MD [address] [facility] [address] [place] [address] PCP - General Family Medicine 07/26/20
--- OUTSIDE RECORDS SUMMARY | 2024-04-20 09:27 | XMS_ITS | CONTINUITY OF CARE DOCUMENT ---
Author Name joselo josue Address Unknown Organization [facility] Address [address] [address] [facility] [address] [place] [address] Phone [phone] Care Team Providers Care Rn Field Case Manager Name Role Phone joselo josue Unavailable Unavailable INSURANCE PROVIDERS Payer name Policy type / Coverage type Shalini red republican ID [employer] [facility] Other [id number]
--- OUTSIDE RECORDS SUMMARY | 2024-04-20 09:27 | XMS_ITS | Referral Summary ---
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
[2024-04-20 09:31] LABS: Hematocrit 38.5 % (37.0-47.0); Hemoglobin 12.5 g/dL (12.0-15.0); Mean Corpuscular HGB Conc 32.5 g/dl (32-36); Mean Corpuscular Hemoglobin 27.8 pg (26-34); Mean Corpuscular Volume 85.6 fl (80-100); Platelet Count Result 316 k/mm3 (150-375); Red Cell Distribution Width 13.7 % (11.5-14.5); White Blood Count 9.3 K/mm3 (4.5-10.0)
[2024-04-20 12:05] LABS: Iron 74 ug/dL (37-170)
[2024-04-20 12:07] LABS: Anion Gap 12 mmol/L (4-12); Blood Urea Nitrogen 18 mg/dL (7-17); Calcium 9.6 mg/dL (8.4-10.2); Carbon Dioxide 26 mmol/L (22-30); Chloride 106 mmol/L (98-107); Estimated Glomerular Filt Rate 58; Glucose 108 mg/dL (65-110); Potassium 4.2 mmol/L (3.4-5.0); Sodium 144 mmol/L (137-145)
[2024-04-20 12:15] LABS: Percent Iron Saturation 21 % (20-50)
[2024-04-20 13:11] LABS: Folic Acid 6.3 ng/mL (2.76->20)
== END 2024-04-20 09:02 | disposition home or self-care (01) ==
PROVIDERS: PCP Family Medicine; Visit Provider Internal Medicine Hematology & Oncology
DX: D64.9 Anemia, unspecified (principal)
CPT/HCPCS: 36415; 80048; 82607; 82728; 82746; 83540; 83550; 85027

== ENCOUNTER 2024-05-12 13:30 | Outpatient (CLI) | payer BC, SELFPAY ==
--- NOTE | ~2024-05-12 | XR_ITS ---
EXAMINATION: XR lumbar spine 2-3V DATE: 05/12/2024 13:49 INDICATION: Low back pain, unspecified. TECHNIQUE: 3 views of lumbar spine were obtained. COMPARISON: None. FINDINGS: There is 9 degrees dextrocurvature of thoracolumbar spine. There is mild chronic anterior w edging of T11 and T12 vertebral bodies. Intervertebral disc heights are normal. There are endplate os teophytes at all levels. There is multilevel facet joint osteoarthritis, severe in lower lumbar spine . IMPRESSION: 1. Mild lumbar spondylosis. Reviewed, dictated and finalized at location A. INUOUS PROCESS COFFEE ROASTER IMPRESSION: 1. Mild lumbar spondylosis.
== END 2024-05-12 13:31 | disposition home or self-care (01) ==
LOC: MICIMG 13:32
PROVIDERS: PCP Physician Assistant; Visit Provider Physician Assistant
DX: M47.896 Other spondylosis, lumbar region (principal)
CPT/HCPCS: 72100

== ENCOUNTER 2024-10-23 08:20 | Outpatient (CLI) | payer BC, SELFPAY ==
--- OUTSIDE RECORDS SUMMARY | 2024-10-23 08:25 | XMS_ITS | Referral Summary ---
Author Organization [facility] [address] Address [address] [place] [address] Care Team Providers Care Coin Machine Service Repairer Name Role Phone Dinora Colvin MD Primary Care Provider Allergies Active Allergy Reactions Criticality Noted Date Comments Penicillins Social History Tobacco Use Types Packs/Day Years Used Date Smoking Tobacco: Never Assessed Comments Unknown Sex and Gender Information Value Date Recorded Sex Assigned at Not on file Legal Sex Female 3:49 AM PHYSIOGNOMIST Gender Identity Not on file Sexual Orientation Not on file Plan of Treatment Not on file Insurance Care Teams Coin Machine Service Repairer Relationship Specialty Start Date End Date Dinora Colvin MD [address] [facility] [address] [place] [address] PCP - General Family Medicine 07/26/20
--- OUTSIDE RECORDS SUMMARY | 2024-10-23 08:25 | XMS_ITS | Clinical Summary ---
Author Organization [facility] [address] Address [address] [place] [address] Care Team Providers Care Deskidding Machine Operator Name Role Phone Dinora Colvin MD Primary Care Provider Allergies Active Allergy Reactions Criticality Noted Date Comments Penicillins Social History Tobacco Use Types Packs/Day Years Used Date Smoking Tobacco: Never Assessed Comments Unknown Sex and Gender Information Value Date Recorded Sex Assigned at Not on file Legal Sex Female 3:49 AM PATIENT INFORMATION COORDINATOR Gender Identity Not on file Sexual Orientation Not on file Obstetrics History Plan of Treatment Not on file Insurance ACCESS Care Teams Deskidding Machine Operator Relationship Specialty Start Date End Date Dinora Colvin MD [address] [facility] [address] [place] [address] PCP - General Family Medicine 07/26/20
--- OUTSIDE RECORDS SUMMARY | 2024-10-23 08:25 | XMS_ITS | Clinical Summary ---
Author Organization [facility] Tracy Thao Address [address] [place] [address] Care Team Providers Care Lucerne Farmer Name Role Phone Addison Conrad MD Primary Care Provider [phone] Allergies Active Allergy Reactions Criticality Noted Date [...] Encounters Date Type Department Care Team Description 10/04/2024 External Device Data STL ABSTRACTION Provider, Abstract 10/03/2024 External Device Data ST[facility] ABSTRACTION Provider, Abstract 09/05/2024 External Device Data [facility] ABSTRACTION Provider, Abstract 08/10/2024 External Device Data [facility] ABSTRACTION Provider, Abstract 08/09/2024 External Device Data [facility] ABSTRACTION Provider, Abstract 08/08/2024 External Device Data ST[facility] ABSTRACTION Provider, Abstract [...] on file Legal Sex Female 10:44 AM CONSTRUCTION GRIP Gender Identity Not on file Sexual Orientation Not on file Last Filed Vital Signs Vital Sign Reading Time Taken Comments Blood Pressure 154/85 04/26/2024 10:57 AM CONSTRUCTION GRIP Pulse 79 04/26/2024 10:57 AM CONSTRUCTION GRIP Temperature 36.4 C (97.5 F) 04/26/2024 10:57 AM CONSTRUCTION GRIP Respiratory Rate 16 04/26/2024 10:57 AM CONSTRUCTION GRIP Oxygen Saturation 94% 04/26/2024 10:57 AM CONSTRUCTION GRIP Inhaled Oxygen Concentration - - Weight 103.4 kg (228 lb) 04/26/2024 10:57 AM CONSTRUCTION GRIP Height 160 cm (5' 3) 02/18/2023 9:58 AM CONSTRUCTION GRIP Body Mass Index 40.39 02/18/2023 9:58 AM CONSTRUCTION GRIP Plan of Treatment Upcoming Encounters Date Type Department Care Team (Late st Contact Info) Description 10/25/2024 10:15 AM CDT Office Visit [facility] Oncology and Hematology - [place] [address] [facility] [address] [place] [address] Matti Terrazas MD [address] [facility] [address] [place] [address] Health Maintenance Due Date Last Done Comments Pre-Diabetes and Diabetes Screening 1972 DTAP/TDAP/TD VACCINES (1 - Tdap) 1991 HEPATITIS B VACCINES (1 of 3 - 19+ 3-dose series) 03/23 HPV/Cotest (21-29) 1993 CERVICAL CANCER SCREENING 2002 HPV/Cotest (30-65) 2002 PAP SMEAR 2002 BREAST CANCER SCREENING 2012 COLORECTAL SCREENING 2017 Colorectal Cancer Screening 2017 FIT-DNA Q 3 years 2017 FIT/FOBT Q 1 year 2017 Flex Sig/CT Colonography Q 5 years 2017 ZOSTER VACCINE (1 of 2) 2022 Preventative Visit- Commercial 03/22/2024 INFLUENZA VACCINE (#1) [address] [place] [address] [address] [employer] CHO[employer] Care Teams Lucerne Farmer Relationship Specialty Start Date End Date Addison Conrad MD [address] [facility] [address] [place] [address] PCP - General Family Practice 04/26/24
[2024-10-23 10:07] LABS: Hematocrit 39.9 % (37.0-47.0); Hemoglobin 12.0 g/dL (12.0-15.0); Mean Corpuscular HGB Conc 30.1 g/dl (32-36); Mean Corpuscular Hemoglobin 25.8 pg (26-34); Mean Corpuscular Volume 85.8 fl (80-100); Platelet Count Result 272 k/mm3 (150-375); Red Blood Count 4.65 M/mm3 (4.2-5.4); White Blood Count 8.5 K/mm3 (4.5-10.0)
[2024-10-23 10:41] LABS: Iron 60 ug/dL (37-170)
[2024-10-23 10:51] LABS: Percent Iron Saturation 18 % (20-50)
[2024-10-23 11:22] LABS: Ferritin 36.00 ng/mL (11.1-264)
[2024-10-23 11:46] LABS: Vitamin B12 > 1000.0 pg/mL (239-931)
== END 2024-10-23 08:21 | disposition home or self-care (01) ==
PROVIDERS: PCP Family Medicine; Visit Provider Internal Medicine Hematology & Oncology
DX: D64.9 Anemia, unspecified (principal)
CPT/HCPCS: 36415; 82607; 82728; 82746; 83540; 83550; 85027

== ENCOUNTER 2024-12-08 10:57 | Outpatient (CLI) | payer BC, SELFPAY ==
--- OUTSIDE RECORDS SUMMARY | 2024-12-08 11:00 | XMS_ITS | Clinical Summary ---
Author Organization [facility] Tracy Thao Address [facility] [address] [address] Care Team Providers Care News Copy Editor Name Role Phone Addison Conrad MD Primary Care Provider [phone] Allergies Active Allergy Reactions Criticality Noted Date [...] Encounters Date Type Department Care Team Description 12/06/2024 External Device Data STL ABSTRACTION Provider, Abstract 12/05/2024 External Device Data [facility] ABSTRACTION Provider, Abstract 10/25/2024 10:15 AM CDT Office Visit [facility] Oncology and Hematology - [place] [address] [place] [address] Matti Terrazas MD Chronic anemia (Primary Dx) 10/24/2024 External Device Data STL ABSTRACTION Provider, Abstract 10/24/2024 Orders Only [facility] Oncology and Hematology - [place] [address] [place] [id number] Matti Terrazas MD 10/23/2024 Orders Only [facility] Oncology and Hematology - [place] [address] [place] [id number] Matti Terrazas MD 10/04/2024 External Device Data STL ABSTRACTION Provider, Abstract 10/03/2024 External Device Data STL ABSTRACTION Provider, Abstract from Last 3 Months Family History Medical History Relation Name Comments Diabetes Mother Relation Name Status Comments Brother Alive Father Alive Mother Social History Tobacco Use Types Packs/Day Years Used Date Smoking Tobacco: Never Smokeless Tobacco: Never Alcohol Use Standard Drinks/Week Comments Never 0 (1 standard drink = 0.6 oz pur e alcohol) Comments Unknown Sex and Gender Information Value Date Recorded Sex Assigned at Not on file 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 Gender Identity Not on file Sexual Orientation Not on file Last Filed Vital Signs Vital Sign Reading Time Taken Comments Blood Pressure 149/70 10/25/2024 10:09 AM CDT Pulse 76 10/25/2024 10:06 AM CDT Temperature 36.5 C (97.7 F) 10/25/2024 10:06 AM CDT Respiratory Rate 15 10/25/2024 10:0 6 AM CDT Oxygen Saturation 96% 10/25/2024 10: 06 AM CDT Inhaled Oxygen Concentration - - Weight 104.7 kg (230 lb 12.8 oz) 2024 10:06 AM CDT Height 160 cm (5' 3) 02/18/2023 9:58 AM FLOOR FINISHER Body Mass Index 40.88 02/18/2023 9:58 AM FLOOR FINISHER Plan of Treatment Upcoming Encounters Date Type Department Care Team (Late st Contact Info) Description 10/26/2025 8:45 AM CDT Office Visit [facility] Oncology and Hematology - [place] [address] [facility] [address] [place] [address] Matti Terrazas MD [address] [facility] [address] [place] [address] Health Maintenance Due Date Last [...] (1 of 2) 2022 INFLUENZA VACCINE (#1) 2024 Procedures Procedure Name Priority Date/Time Associated Diagnosis Comments CBC WITH AUTODIFFERENTIAL Routine 2024 12:32 PM CDT IRON, TIBC, AND PERCENT SATURATION Routine 10/23/2024 8:01 AM CDT from Last 3 Months Results * CBC WITH AUTODIFFERENTIAL (10/23/2024 12:32 PM CDT) Blood Matti Terrazas MD HEMATOLOGY ORDERABLES Final Res ult * IRON, TIBC, AND PERCENT SATURATION (10/23/2024 8:01 AM CDT) Blood Matti Terrazas MD CHEMISTRY ORDERABLES Final Resu lt from Last [address] [facility] BLUE ACCESS CHOICE Care Teams News Copy Editor Relationship Specialty Start Date End Date Addison Conrad MD [address] [facility] [address] [place] [address] PCP - General Family Practice 04/26/24
--- OUTSIDE RECORDS SUMMARY | 2024-12-08 11:00 | XMS_ITS | Clinical Summary ---
Author Organization [facility] [address] Address [address] [place] [address] Care Team Providers Care Air Press Operator Name Role Phone Dinora Colvin MD Primary Care Provider Allergies Active Allergy Reactions Criticality Noted Date Comments Penicillins Social History Tobacco Use Types Packs/Day Years Used Date Smoking Tobacco: Never Assessed Comments Unknown Sex and Gender Information Value Date Recorded Sex Assigned at Not on file Legal Sex Female 3:49 AM OUTER DIAMETER GRINDER Gender Identity Not on file Sexual Orientation Not on file Obstetrics History Plan of Treatment Not on file Insurance [facility] ACCESS Care Teams Air Press Operator Relationship Specialty Start Date End Date Dinora Colvin MD [address] [facility] [address] [place] [address] PCP - General Family Medicine 07/26/20
[2024-12-08 12:10] LABS: Hematocrit 39.3 % (37.0-47.0); Hemoglobin 12.3 g/dL (12.0-15.0); Immature Granulocyte Percent A 0.5 % (0-0.5); Lymphocytes Absolute Auto 2.31 K/mm3 (0.9-3.2); Mean Corpuscular HGB Conc 31.3 g/dl (32-36); Mean Corpuscular Hemoglobin 26.6 pg (26-34); Mean Corpuscular Volume 85.1 fl (80-100); Nucleated Red Blood Cells Absolute Auto 0.000 K/mm3 (0.0-0.012); Nucleated Red Blood Cells Perc 0.0 % (0.0-0.2); Platelet Count Result 296 k/mm3 (150-375); Red Blood Count 4.62 M/mm3 (4.2-5.4); White Blood Count 9.8 K/mm3 (4.5-10.0)
[2024-12-08 12:29] LABS: Hemoglobin A1C 6.3 % (<5.7)
[2024-12-08 12:30] LABS: Alanine Aminotransferase 28 U/L (6-35); Albumin Level 4.4 g/dL (3.5-5.1); Alkaline Phosphatase 112 U/L (38-126); Anion Gap 9 mmol/L (4-12); Aspartate Amino Transferase 34 U/L (14-36); Bilirubin,Total 0.7 mg/dL (0.2-1.3); Blood Urea Nitrogen 16 mg/dL (7-17); Calcium 9.1 mg/dL (8.4-10.2); Carbon Dioxide 26 mmol/L (22-30); Chloride 107 mmol/L (98-107); Estimated Glomerular Filt Rate > 60; Glucose 106 mg/dL (65-110); Potassium 4.0 mmol/L (3.4-5.0); Sodium 142 mmol/L (137-145); Total Protein 8.1 g/dL (6.3-8.2)
[2024-12-08 12:46] LABS: Free T4 Free Thyroxine 0.98 ng/dL (0.78-2.19)
[2024-12-08 13:01] LABS: Thyroid Stimulating Hormone 3.050 uIU/mL (0.465-4.680)
== END 2024-12-08 10:58 | disposition home or self-care (01) ==
LOC: ANHLAB 10:58
PROVIDERS: PCP Family Medicine; Visit Provider Physician Assistant
DX: R10.9 Unspecified abdominal pain (principal); E07.9 Disorder of thyroid, unspecified
CPT/HCPCS: 36415; 80053; 83036; 84439; 84443; 85025

== ENCOUNTER 2025-01-25 10:50 | Outpatient (CLI) | payer BC, SELFPAY ==
--- NOTE | ~2025-01-25 | MM_ITS ---
EXAMINATION: MM diagnostic annie BI w alan INDICATION: 54-year old female; nonfocal RIGHT Breast pain. COMPARISON: None available. TECHNIQUE: Digital breast tomosynthesis CC and MLO of Both breasts and True lateral view of Both breasts were obtained with computer-aided detection to assist in interpretation of the study. FINDINGS: The breasts are almost entirely fatty. There are no suspicious masses, calcifications, architectural distortion or other abnormalities in Both breasts. IMPRESSION: No evidence of malignancy in Both breasts. RECOMMENDATIONS: 1. Clinical management of patient's breast pain. 2. If the patient has high risk factors for developing breast cancer, such as, but not limited dense breasts, positive gene markers, first degree relative with breast cancer which is not tested for Gene markers of greater than 20% lifetime risk of developing breast cancer, supplemental breast MRI screening (ultrasound if MRI is contraindicated), in addition to annual screening mammography, should be considered and discussed with the patient. BI-RADS 2, BENIGN Reviewed, dictated and finalized at location B. FIC OPERATIONS ENGINEER IMPRESSION: No evidence of malignancy in Both breasts. RECOMMENDATIONS: 1. Clinical management of patient's breast pain. 2. If the patient has high risk factors for developing breast cancer, such as, but not limited dense breasts, positive gene markers, first degree relative wit h breast cancer which is not tested for Gene markers of greater than 20% lifeti me risk of developing breast cancer, supplemental breast MRI screening (ultraso und if MRI is contraindicated), in addition to annual screening mammography, sh ould be considered and discussed with the patient. BI-RADS 2, BENIGN
--- OUTSIDE RECORDS SUMMARY | 2025-01-25 18:51 | XMS_ITS | Clinical Summary ---
Author Organization [facility] [address] Address [address] [place] [address] Care Team Providers Care Probation Agent Name Role Phone Dinora Colvin MD Primary Care Provider Allergies Active Allergy Reactions Criticality Noted Date Comments Penicillins Social History Tobacco Use Types Packs/Day Years Used Date Smoking Tobacco: Never Assessed Comments Unknown Sex and Gender Information Value Date Recorded Sex Assigned at Not on file Legal Sex Female 3:49 AM DIPPER OPERATOR Gender Identity Not on file Sexual Orientation Not on file Plan of Treatment Not on file Insurance [facility] ACCESS Care Teams Probation Agent Relationship Specialty Start Date End Date Dinora Colvin MD [address] [facility] [address] [place] [address] PCP - General Family Medicine 07/26/20
--- OUTSIDE RECORDS SUMMARY | 2025-01-25 18:51 | XMS_ITS | Clinical Summary ---
Author Organization [facility] Tracy Thao Address [address] [place] [address] Care Team Providers Care Tank Truck Mechanic Name Role Phone Addison Conrad MD Primary Care Provider [phone] Allergies Active Allergy Reactions Criticality Noted Date [...] Encounters Date Type Department Care Team Description 01/23/2025 External Device Data ST[facility] ABSTRACTION Provider, Abstract 01/17/2025 External Device Data [facility] ABSTRACTION Provider, Abstract 01/16/2025 External Device Data [facility] ABSTRACTION Provider, Abstract 01/10/2025 External Device Data [facility] ABSTRACTION Provider, Abstract 01/09/2025 External Device Data [facility] ABSTRACTION Provider, Abstract 12/06/2024 External Device Data STL ABSTRACTION Provider, Abstract 12/05/2024 External Device Data STL ABSTRACTION Provider, Abstract 10/25/2024 10:15 AM CDT Office Visit [facility] Oncology and Hematology [place] [address] [facility] [address] [place] [address] Matti Terrazas MD Chronic anemia (Primary Dx) from Last 3 Months Family History Medical [...] on file Legal Sex Female 10:44 AM PULP REFINER OPERATOR Gender Identity Not on file Sexual [...] 160 cm (5' 3) 02/18/2023 9:58 AM PULP REFINER OPERATOR Body Mass Index 40.88 02/18/2023 9:58 AM PULP REFINER OPERATOR Plan of Treatment Upcoming Encounters Date Type Department Care Team (Late st Contact Info) Description 10/26/2025 8:45 AM CDT Office Visit [facility] Oncology and Hematology [place] [address] [place] [address] Matti Terrazas MD [address] [facility] [address] [place] [address] Health Maintenance Due Date Last [...] of 2) 2022 INFLUENZA VACCINE (#1) 2024 Insurance [employer] CHOICE Care Teams Tank Truck Mechanic Relationship Specialty Start Date End Date Addison Conrad MD [address] [facility] [address] [place] [address] PCP - General Family Practice 04/26/24
--- OUTSIDE RECORDS SUMMARY | 2025-01-25 18:51 | XMS_ITS | Encounter Summary ---
Author Organization [facility] Address [address] [place] [address] Care Team Providers Care Greaser Helper Name Role Phone Addison Conrad MD Primary Care Provider [phone] Encounter Details Date Type Department Care Team (Late st Contact Info) Description 01/23/2025 External Device Data [facility] ABSTRACTION Provider, Abstract NO ADDRESS ON FILE Social History Tobacco Use Types Packs/Day Years Used Date Smoking Tobacco: Never Smokeless Tobacco: Never Alcohol Use Standard Drinks/Week Comments Never 0 (1 standard drink = 0.6 oz pur e alcohol) Comments Unknown Sex and Gender Information Value Date Recorded Sex Assigned at Not on file Legal Sex Female 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 Gender Identity Not on file Sexual Orientation Not on file documented as of this encounter Plan of Treatment Upcoming Encounters Date Type Department Care Team (Late st Contact Info) Description 10/26/2025 8:45 AM CDT Office Visit [facility] Oncology and Hematology - [place] [address] [facility] [address] [place] [address] Matti Terrazas MD [address] [facility] [address] [place] [address] documented as of this encounter Visit Diagnoses Not on filedocumented in this encounter Care Teams Greaser Helper Relationship Specialty Start Date End Date Addison Conrad MD [address] [facility] [address] [place] [address] PCP - General Family Practice 04/26/24 documented as of this encounter
== END 2025-01-25 10:51 | disposition home or self-care (01) ==
LOC: ANHFOHIMG 10:51
PROVIDERS: PCP Family Medicine; Visit Provider Physician Assistant
DX: R92.8 Other abnormal and inconclusive findings on diagnostic imaging of breast (principal); N64.4 Mastodynia
CPT/HCPCS: 77062; 77066; G0279